=== PATIENT | male | born 1985 | race Caucasian/White ===

== ENCOUNTER 2022-10-26 22:16 | Emergency (ER) | payer OTHER ==
[2022-10-26 22:25] VITALS: BP 131/92; PULSE 70; RESP 20; BMI 25.8
[2022-10-27] MEDS ORDERED: predniSONE 20 MG TABLET (UD) PO ONE (00:02)
[2022-10-27] MEDS ORDERED: ACYCLOVIR 400 MG TABLET PO ONE (00:22)
[2022-10-27] MEDS ORDERED: predniSONE 20 MG TABLET (UD) ONE (01:04)
[2022-10-27] MEDS ORDERED: ACYCLOVIR 200 MG CAPSULE ONE (01:04)
== END 2022-10-27 01:13 | disposition home or self-care (01) ==
LOC: JER 22:16
DX: G51.0 Bell's palsy (principal)
CPT/HCPCS: 99283-25